=== PATIENT | female | born 2000 ===

== ENCOUNTER 2021-06-10 08:11 | Outpatient (CLI) | payer OTHER | END 2021-06-10 08:12 | disposition home or self-care (01) | LOC: PF 08:11 | PROVIDERS: ATTEND Internal Medicine | DX: J45.909 Unspecified asthma, uncomplicated (principal); F41.9 Anxiety disorder, unspecified; M41.80 Other forms of scoliosis, site unspecified; M19.90 Unspecified osteoarthritis, unspecified site | CPT/HCPCS: 94010 ==